=== PATIENT | female | born 1945 | race Hispanic/Latino ===

== ENCOUNTER 2020-09-02 20:00 | Emergency (ER) | payer BC, OTHER ==
[2020-09-02] MEDS ORDERED: Acetaminophen 500 MG TAB ONE (20:33)
== END 2020-09-02 20:52 | disposition home or self-care (01) ==
LOC: ERS 20:00
DX: S16.1XXA Strain of muscle, fascia and tendon at neck level, initial encounter (principal); V89.2XXA Person injured in unspecified motor-vehicle accident, traffic, initial encounter
CPT/HCPCS: 70450; 72125; G0390